=== PATIENT | male | born 1990 | race Hispanic/Latino ===

== ENCOUNTER 2017-11-03 21:28 | Emergency (ER) | payer MEDICAID ==
--- NOTE | 2017-11-03 22:53 | Cat Scan Report ---
FINAL REPORT PROCEDURE: CT CERVICAL SPINE WO CON TECHNIQUE: Computerized tomography of the cervical spine was performed from the skull base to T1 without contrast material. HISTORY: head lac COMPARISON: No prior studies are available for comparison. FINDINGS: Alignment is satisfactory. No fracture. Odontoid process is intact C1-2: No significant abnormality. C2-3: No significant abnormality. C3-4: No significant abnormality. C4-5: No significant abnormality. C5-6: Disc space is well preserved. Mild facet spurring. C6-7: No significant abnormality. C7-T1: No significant abnormality. Other: No additional findings. IMPRESSION: No fracture. Disc spaces are well preserved.
--- NOTE | 2017-11-03 23:01 | Cat Scan Report ---
FINAL REPORT PROCEDURE: CT FACIAL BONES WO CON TECHNIQUE: Computerized tomography of the facial bones and soft tissues with axial and coronal sections performed from the cranial aspect of the frontal sinuses to the caudal portion of the mandible without contrast material. HISTORY: head lac COMPARISON: No prior studies are available for comparison. FINDINGS: Bones: No significant abnormality. No fracture. Normal orbits. Normal mandible. Normal zygomatic arches. Normal nasal bones. There is nasal septal deviation. Paranasal sinuses: Clear. Soft tissues: Soft tissue injury of the frontal region. Other: None. IMPRESSION: Soft tissue injury. No fracture seen.
--- NOTE | 2017-11-03 23:03 | Cat Scan Report ---
FINAL REPORT PROCEDURE: CT HEAD/BRAIN WO CON TECHNIQUE: Computerized tomography of the head was performed without contrast material. HISTORY: head lac COMPARISON: No prior studies are available for comparison. FINDINGS: Skull and scalp: Left frontal soft tissue injury. Right occipital soft tissue swelling.. Paranasal sinuses: Normal. Ventricles and subarachnoid spaces: Normal. Cerebrum: No evidence of hemorrhage, acute infarction or mass . Cerebellum and brainstem: No evidence of hemorrhage, acute infarction or mass. Vasculature: Normal. Comments: None. IMPRESSION: Normal CT brain Soft tissue swelling and injury.
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
[2017-11-04] MEDS ORDERED: KETALAR IV ONE (00:36)
[2017-11-04] MEDS ORDERED: ZOFRAN IV ONE (02:00)
[2017-11-04] MEDS ORDERED: ZOFRAN ONE (02:08)
[2017-11-04] MEDS: ATIVAN IM PRN ×3 (08:14→22:00)
[2017-11-04] MEDS: HALDOL IM PRN ×2 (11:32→20:32)
[2017-11-05] MEDS: HALDOL IM PRN (03:38)
[2017-11-05] MEDS: ATIVAN IM PRN ×2 (03:39→07:15)
[2017-11-05] MEDS ORDERED: GEODON IM ONE ×2 (04:25→04:36)
[2017-11-05] MEDS ORDERED: NON-FORMULARY (Diazepam [Diazepam] 10 MG) PO SCH (08:00)
[2017-11-05] MEDS: HALDOL PO SCH ×2 (09:50→14:58)
[2017-11-05] MEDS: VALIUM PO SCH ×2 (09:50→14:58)
[2017-11-05] MEDS ORDERED: MAG-OX PO SCH (10:00)
[2017-11-05] MEDS ORDERED: ARTANE PO SCH (10:00)
--- NOTE | 2017-11-05 10:49 | Emergency Department Report ---
Blank Doc - Documentation Documentation: Patient reevaluated at 10:40 AM. Patient is currently in 4-point restraints. Discussed behavioral goals with patient. Left lower extremity restraint removed
[2017-11-05 18:36] VITALS: BP 138/88
[2017-11-05] MEDS ORDERED: ARIPIPRAZOLE 5 MG PO SCH (22:00)
[2017-11-05] MEDS ORDERED: ABILIFY PO SCH (22:00)
== END 2017-11-05 18:39 | disposition home or self-care (01) ==
LOC: ED 21:28
DX: S01.81XA Laceration without foreign body of other part of head, initial encounter (principal); F84.0 Autistic disorder; F20.9 Schizophrenia, unspecified; I10 Essential (primary) hypertension; X58.XXXA Exposure to other specified factors, initial encounter; Y93.89 Activity, other specified; Y92.89 Other specified places as the place of occurrence of the external cause; Y99.8 Other external cause status
CPT/HCPCS: 12053; 70450; 70486; 72125; 96372; 96374; 96375; 99285; J1630; J2060; J2405; J3486

== ENCOUNTER → 2017-11-06 | Emergency (ER) | payer MEDICAID ==
[~2017-11-06] MED LIST: ARIPIPRAZOLE 5 MG PO SCH; ATIVAN IM ONE; ATIVAN ONE; GEODON IM ONE; WATER FOR INJ (PF) 10 ML ONE; XANAX PO ONE
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
[2017-11-06 17:12] LABS: Basophils % (Auto) 0.4 % (0.0-1.8); Eosinophils # (Auto) 0.1 K/mm3 (0.0-0.4); Eosinophils % (Auto) 1.7 % (0.0-4.3); Hematocrit 31.7 % (35.5-45.6); Hemoglobin 10.4 gm/dl (11.8-15.2); Lymphocytes # (Auto) 1.3 K/mm3 (1.2-5.4); Mean Corpuscular HGB Conc 33 % (32-34); Mean Corpuscular Hemoglobin 26 pg (28-32); Mean Corpuscular Volume 80 fl (84-94); Monocytes # (Auto) 0.6 K/mm3 (0.0-0.8); Monocytes % (Auto) 6.4 % (0.0-7.3); Platelet Count 490 K/mm3 (140-440); Red Blood Count 3.94 M/mm3 (3.65-5.03); Red Cell Distribution Width 15.4 % (13.2-15.2)
[2017-11-06 17:24] LABS: Alanine Aminotransferase 26 units/L (7-56); Albumin 3.6 g/dL (3.9-5); BUN/Creatinine Ratio 20; Blood Urea Nitrogen 8 mg/dL (9-20); Calcium 9.1 mg/dL (8.4-10.2); Hemolysis Index 8
[2017-11-06 20:12] LABS: Bilirubin,Urine NEG (Negative); Blood,Urine NEG (Negative); Color,Urine Yellow (Yellow); Protein,Urine <15 mg/dL mg/dL (Negative); RBC,Urine < 1.0 /HPF (0.0-6.0); Urobilinogen,Urine < 2.0 mg/dL (<2.0); WBC,Urine < 1.0 /HPF (0.0-6.0)
[2017-11-06 20:15] LABS: Amphetamine Screen,Urine PRESUMPTIVE NEGATIVE; Cannabinoid Screen,Urine PRESUMPTIVE NEGATIVE; Cocaine Screen,Urine PRESUMPTIVE NEGATIVE; Methadone Screen,Urine PRESUMPTIVE NEGATIVE; Opiate Screen,Urine PRESUMPTIVE NEGATIVE
[2017-11-06 20:29] LABS: Benzodiazepines Screen,Urine PRESUMPTIVE POSITIVE
--- NOTE | 2017-11-06 21:13 | Cat Scan Report ---
FINAL REPORT PROCEDURE: CT head without contrast. TECHNIQUE: Computerized tomography of the head was performed without contrast material. HISTORY: Head trauma. COMPARISON: CT head 11/03/2017. FINDINGS: The ventricles are normal in size. The walters matter and white matter appear normal. There are no mass lesions. There is no intracranial hemorrhage. The calvarium appears intact. The mastoid air cells and paranasal sinuses are clear. There is a small left frontal scalp hematoma. IMPRESSION: Normal study of the brain.
[2017-11-06] MEDS: ABILIFY PO SCH (23:49)
[2017-11-07] MEDS: ABILIFY PO SCH (22:02)
[2017-11-08 10:47] LABS: Lipase 31 units/L (13-60)
--- NOTE | 2017-11-08 14:08 | Consultation ---
History of Present Illness - Reason for Consult Consult date: 11/08/17 Reason for consult: Mental Health Evaluation Requesting physician: LUIS MARCUS - Chief Complaint Chief complaint: "Can you push me" - History of Present Psychiatric Illness 27-year-old -Kaz[place] male presents to the emergency department by EMS from [facility] for behavioral issues. Per the record, the patient has a hx of schizophrenia. Today the patient is calm and sitting in a wheelchair during the assessment. He asked to be pushed around the ER several times during the interview. I would ask him questions, and he would repeat those same questions. He was observed having a venipuncture procedure done, which he was cooperative. No gestures of SI/HI's. Medications and Allergies Allergies Allergy/AdvReac Type Severity Reaction Status Date / Time No Known Allergies Allergy Verified 11/04/17 00:41 Home Medications Medication Instructions Recorded Confirmed Last Taken Type ARIPiprazole [Abilify] 5 mg PO QHS 11/04/17 11/04/17 Unknown History Diazepam 10 mg PO TID 11/04/17 11/04/17 Unknown History Divalproex Sodium [Depakote] 500 mg PO BID 11/04/17 11/04/17 Unknown History Haloperidol [Haldol] 5 mg PO TID 11/04/17 11/04/17 Unknown History Magnesium Oxide [Mag-Ox] 400 mg PO BID 11/04/17 11/04/17 Unknown History Trihexyphenidyl [Artane Tab] 2 mg PO BID 11/04/17 11/04/17 Unknown History Active Meds: Active Medications Aripiprazole (Abilify) 5 mg PO QHS [facility] Last Admin: 11/07/17 22:02 Dose: Not Given Divalproex Sodium (Depakote Dr) 500 mg PO BID [facility] Last Admin: 11/08/17 09:31 Dose: 500 mg Past psychiatric history - Past Medical History Past Medical History: other (Unable to obtain) Past Surgical History: Other (Unable to obtain ) - past Psychiatric treatment and history psychiatric treatment history: Per the record, the patient has a hx of Schizophrenia. Unable to obtain a fam psy hx. - Social History Social history: other (Resides at a [place] [facility]) Mental Status Exam - Vital signs Last Vital Signs Temp 98.5 F 11/07/17 10:13 Pulse 84 11/07/17 10:13 Resp 20 11/07/17 10:13 BP 128/72 11/07/17 10:13 Pulse Ox 100 11/07/17 10:13 - Exam Narrative exam: MSE: Appearance: calm Behavior: regular eye contact Speech: regular rate and tone, echolalia Mood: unable to assess Affect: normal Thought Process: unable to assess Thought Content: no gestures of SI/HI's and AVH's Motor Activity: ambulatory Cognition: alert Insight: unable to assess Judgment: unable to assess Results Result Diagrams: 11/06/17 16:52 11/06/17 16:52 All other labs normal. Assessment and Plan Assessment and plan: Impression: Hx of Schizophrenia. Unspecified Intellectual Disability. Today the patient is calm and sitting in a wheelchair during the assessment. The patient is positive for benzos. The patient has been given PRN Ativan several time. DDx: Mood DO Recommendation/Plan: Continue current medication regimen of Abilify 5 mg PO HS and Depakote 500 mg PO BID. Start Klonopin 0.5 mg BID for anxiety. Also, the patient was positive for benzos. We do not want the patient to experience withdrawals. Recommend Haldol 2 mg PO/IM Q6hrs PRN for acute agitation. The patient is pending placement by [facility].
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
[2017-11-08] MEDS: ABILIFY PO SCH (22:00)
[2017-11-08] MEDS: ATIVAN IM PRN (22:39)
[2017-11-08] MEDS: HALDOL IM PRN (22:40)
--- NOTE | 2017-11-09 18:40 | Progress Note ---
Subjective - Reason for Consult Consult date: 11/09/17 Reason for consult: follow up - Chief Complaint Chief complaint: "[employer] doesn't work." 27-year-old -[place]anaian male presents to the emergency department by EMS from [facility] for behavioral issues. Per the record, the patient has a hx of schizophrenia. Today the patient is calm and lying in bed. He wants to watch [employer]. No gestures of SI/HI's. Mental Status Exam - Vital signs Last Vital Signs Temp 99.1 F 11/08/17 19:49 Pulse 111 H 11/08/17 19:49 Resp 20 11/08/17 19:49 BP 124/69 11/08/17 19:49 Pulse Ox 99 11/08/17 19:49 - Exam Narrative exam: Appearance: calm Behavior: regular eye contact Speech: regular rate and tone, echolalia Mood: unable to assess Affect: normal Thought Process: unable to assess Thought Content: no gestures of SI/HI's and AVH's Motor Activity: ambulatory Cognition: alert Insight: unable to assess Judgment: unable to assess Assessment and Plan Impression: Hx of Schizophrenia. Unspecified Intellectual Disability. Today the patient is calm. The patient is positive for benzos. DDx: Mood DO Recommendation/Plan: Continue current medication regimen and increase Abilify to 10 mg PO HS for schizophrenia and continue Depakote 500 mg PO BID. Continue Klonopin 0.5 mg BID for anxiety. Also, the patient was positive for benzos. We do not want the patient to experience withdrawals. Recommend Haldol 2 mg PO/IM Q6hrs PRN for acute agitation. The patient is pending placement
[2017-11-09] MEDS: ABILIFY PO SCH (22:01)
[2017-11-10] MEDS: ATIVAN IM PRN ×5 (00:17→21:15)
--- NOTE | 2017-11-10 18:18 | Progress Note ---
Subjective - Reason for Consult Consult date: 11/10/17 Reason for consult: follow up - Chief Complaint Chief complaint: "I have to go home tomorrow." 27-year-old -Colombian male presents to the emergency department by EMS from [facility] for behavioral issues. Per the record, the patient has a hx of schizophrenia. Abilify was increase to 10mg yesterday. Today the patient is calm and lying in bed. The record indicates he received ativan at 2pm. No gestures of SI/HI's. He was heard singing after the interview. Mental Status Exam - Vital signs Last Vital Signs Temp 98.5 F 11/10/17 17:28 Pulse 96 H 11/10/17 17:28 Resp 16 11/10/17 17:28 BP 126/80 11/10/17 17:28 Pulse Ox 100 11/10/17 17:28 - Exam Narrative exam: Appearance: calm Behavior: regular eye contact Speech: regular rate and tone, echolalia Mood: unable to assess Affect: normal Thought Process: unable to assess Thought Content: no gestures of SI/HI's and AVH's Motor Activity: ambulatory Cognition: alert Insight: unable to assess Judgment: unable to assess Assessment and Plan Impression: Hx of Schizophrenia. Unspecified Intellectual Disability. Today the patient is calm. The patient is positive for benzos. DDx: Mood DO Recommendation/Plan: Continue current medication regimen and continue Abilify to 10 mg PO HS for schizophrenia and continue Depakote 500 mg PO BID. Continue Klonopin 0.5 mg BID for anxiety. Also, the patient was positive for benzos. We do not want the patient to experience withdrawals. Recommend Haldol 2 mg PO/IM Q6hrs PRN for acute agitation. The patient is pending placement. Reevaluate in 24 hours to determine if he continues to meet criteria for 1013.
[2017-11-10] MEDS: HALDOL IM PRN (20:23)
[2017-11-10] MEDS: ABILIFY PO SCH (21:48)
--- NOTE | 2017-11-11 03:46 | Emergency Department Report ---
HPI - General Chief Complaint: Laceration/Recheck/Suture Time Seen by Provider: 11/06/17 16:18 - HPI HPI: Patient is one week post laceration repair of vertical mid forehead laceration by myself, and on reexamination this evening at 2300 hrs., patient's wound is healing well, and sutures are ready for removal. Sutures were removed by myself, and patient was cooperative, and tolerated the procedure well, and no dressing was needed afterwards. Patient return to routine care afterwards. ED Past Medical Hx - Past Medical History Hx Hypertension: Yes Hx Psychiatric Treatment: Yes (Schizophrenia, autism) Additional medical history: Autistic - Social History Smoking Status: Unknown if ever smoked - Medications Home Medications: Home Medications Medication Instructions Recorded Confirmed Last Taken Type ARIPiprazole [Abilify] 5 mg PO QHS 11/04/17 11/04/17 Unknown History Diazepam 10 mg PO TID 11/04/17 11/04/17 Unknown History Divalproex Sodium [Depakote] 500 mg PO BID 11/04/17 11/04/17 Unknown History Haloperidol [Haldol] 5 mg PO TID 11/04/17 11/04/17 Unknown History Magnesium Oxide [Mag-Ox] 400 mg PO BID 11/04/17 11/04/17 Unknown History Trihexyphenidyl [Artane Tab] 2 mg PO BID 11/04/17 11/04/17 Unknown History ED Review of Systems ROS: Stated complaint: BEHAVIOR/EVALUATION Other details as noted in HPI Physical Exam - Physical Exam Vital Signs: Vital Signs 11/06/17 11/06/17 11/07/17 16:13 19:00 10:13 Temperature 98.6 F 98.7 F 98.5 F Pulse Rate 104 H 104 H 84 Respiratory 16 17 20 Rate Blood Pressure 118/74 136/73 128/72 [Left] O2 Sat by Pulse 100 99 100 Oximetry 11/08/17 11/09/17 11/10/17 19:49 20:22 17:28 Temperature 99.1 F 98.3 F 98.5 F Pulse Rate 111 H 98 H 96 H Respiratory 20 18 16 Rate Blood Pressure 124/69 121/72 126/80 [Left] O2 Sat by Pulse 99 98 100 Oximetry 11/10/17 20:59 Temperature 98.6 F Pulse Rate 108 H Respiratory 17 Rate Blood Pressure 116/67 [Left] O2 Sat by Pulse 95 Oximetry General: patient stable, in no distress, although he has limited communication abilities , he was calm and cooperative during wound recheck. Physical Exam: physical examination shows patient to be and vital signs are stable on review of nursing notes. Forehead examination shows a healing midline vertical laceration, with Prolene sutures intact in a running locking fashion. There is a fair amount of residual scab over the laceration, but sutures were readily evident, and there was no signs of infection. Wound was nontender on palpation. ED Course Vital Signs 11/06/17 11/06/17 11/07/17 16:13 19:00 10:13 Temperature 98.6 F 98.7 F 98.5 F Pulse Rate 104 H 104 H 84 Respiratory 16 17 20 Rate Blood Pressure 118/74 136/73 128/72 [Left] O2 Sat by Pulse 100 99 100 Oximetry 11/08/17 11/09/17 11/10/17 19:49 20:22 17:28 Temperature 99.1 F 98.3 F 98.5 F Pulse Rate 111 H 98 H 96 H Respiratory 20 18 16 Rate Blood Pressure 124/69 121/72 126/80 [Left] O2 Sat by Pulse 99 98 100 Oximetry 11/10/17 20:59 Temperature 98.6 F Pulse Rate 108 H Respiratory 17 Rate Blood Pressure 116/67 [Left] O2 Sat by Pulse 95 Oximetry ED Medical Decision Making - Lab Data Result diagrams: 11/06/17 16:52 11/06/17 16:52 Critical Care Time: No Critical care attestation.: If time is entered above; I have spent that time in minutes in the direct care of this critically ill patient, excluding procedure time. ED Disposition Clinical Impression: Autistic disorder, Encounter for removal of sutures Disposition: [id number]/TX-70 ANOTHER TYPE HLTHCARE Condition: Stable Referrals: PRIMARY CARE, [Primary Care Provider] - 3-5 Days
--- NOTE | 2017-11-11 10:20 | Progress Note ---
Subjective - Reason for Consult Consult date: 11/11/17 Reason for consult: Psychiatry Follow-up - Chief Complaint Chief complaint: "Hello" 27-year-old -[place] male presents to the emergency department by EMS from [facility] for behavioral issues. Per the record, the patient has a hx of schizophrenia. Today the patient is calm during the assessment. He was observed eating his breakfast. No gestures of SI/HI's. Mental Status Exam - Vital signs Last Vital Signs Temp 98 F 11/11/17 08:45 Pulse 99 H 11/11/17 08:45 Resp 16 11/11/17 08:45 BP 133/83 11/11/17 08:45 Pulse Ox 100 11/11/17 08:45 - Exam Narrative exam: MSE: Appearance: calm Behavior: regular eye contact Speech: regular rate and tone, echolalia Mood: unable to assess Affect: normal Thought Process: unable to assess Thought Content: no gestures of SI/HI's and AVH's Motor Activity: ambulatory Cognition: alert Insight: unable to assess Judgment: unable to assess Assessment and Plan Impression: Hx of Schizophrenia. Unspecified Intellectual Disability. Today the patient is calm during the assessment. The patient is positive for benzos. DDx: Mood DO Recommendation/Plan: Continue current medication regimen of Abilify 10 mg PO HS , Depakote 500 mg PO BID, and Klonopin 0.5 mg BID for anxiety. Recommend Haldol 2 mg PO/IM Q6hrs PRN for acute agitation. The patient is pending placement by [facility].
[2017-11-11] MEDS: HALDOL IM PRN ×2 (11:33→20:21)
[2017-11-11] MEDS: ABILIFY PO SCH (22:31)
[2017-11-12] MEDS: ATIVAN IM PRN (05:00)
[2017-11-12 07:50] VITALS: BP 125/80
--- NOTE | 2017-11-12 12:13 | Progress Note ---
Subjective - Reason for Consult Consult date: 11/12/17 Reason for consult: Psychiatry Follow-up - Chief Complaint Chief complaint: "Can I go home" 27-year-old -[place] male presents to the emergency department by EMS from [facility] for behavioral issues. No changes to the patient's presentation. No gestures of SI/HI's. Mental Status Exam - Vital signs Last Vital Signs Temp 97.1 F L 11/12/17 07:48 Pulse 97 H 11/12/17 07:48 Resp 18 11/12/17 07:48 BP 125/80 11/12/17 07:48 Pulse Ox 100 11/12/17 07:48 - Exam Narrative exam: MSE: Appearance: calm Behavior: regular eye contact Speech: regular rate and tone, echolalia Mood: unable to assess Affect: normal Thought Process: unable to assess Thought Content: no gestures of SI/HI's and AVH's Motor Activity: ambulatory Cognition: alert Insight: unable to assess Judgment: unable to assess Assessment and Plan Impression: Hx of Schizophrenia. Unspecified Intellectual Disability. Today the patient is calm during the assessment. The patient is positive for benzos. DDx: Mood DO Recommendation/Plan: Continue current medication regimen of Abilify 10 mg PO HS , Depakote 500 mg PO BID, and Klonopin 0.5 mg BID for anxiety. Recommend Haldol 2 mg PO/IM Q6hrs PRN for acute agitation. The patient is pending placement/ discharge today per case mgmt.
[2017-11-12] MEDS: ABILIFY PO SCH (22:00)
[2017-11-13] MEDS: HALDOL IM PRN (00:49)
== END | disposition other institution (70) ==
LOC: ED 15:39
DX: F84.0 Autistic disorder (principal); I10 Essential (primary) hypertension; F20.9 Schizophrenia, unspecified
CPT/HCPCS: 36415; 70450; 80053; 80307; 81001; 85025; 96372; 99285; G0480; 80164; 80320; 82150; 83690; 84075; 84450; J1630; J2060; J3486